=== PATIENT | male | born 1995 | race Caucasian/White ===

== ENCOUNTER → 2020-05-03 08:32 | Outpatient (BNVA) | payer OTHER, SELFPAY | PROVIDERS: Visit Provider Physician Assistant Medical | DX: S61.012A Laceration without foreign body of left thumb without damage to nail, initial encounter (principal); W26.9XXA Contact with unspecified sharp object(s), initial encounter | CPT/HCPCS: 12001; 99203 ==

== ENCOUNTER 2022-02-14 09:39 | Emergency (ER) | payer OTHER, SELFPAY ==
--- NOTE | ~2022-02-14 | XR_ITS ---
EXAMINATION: XR HAND, RIGHT CLINICAL INFORMATION: Crush injury, pain COMPARISON: None TECHNIQUE: Right hand is imaged in 4 views. FINDINGS: No visible acute healing fracture, dislocation, or destructive process. No visible radiopaque soft tissue from body. No periostitis. Bony mineralization appears normal. XR/XR hand RT min 3V IMPRESSION: No fracture, dislocation, or visible radiopaque soft tissue foreign body.
[2022-02-14 09:40] VITALS: BP 136/78; PULSE 65; RESP 15; TEMP 36.6; O2SAT 97; BMI 23.1
[2022-02-14] MEDS: Diphth,Pertus(ACell),Tet Adult 0.5 ML SYRINGE IM (10:43)
[2022-02-14] MEDS: Lidocaine HCl 1 % MPF 5 ML VIAL 6 ML SUBCUT (10:44)
--- NOTE | 2022-02-14 11:08 | ED.WOUNDLAC ---
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 he denies any fevers, paresthesias, weakness, thoughts of foreign bodies or any other symptoms complaints or concerns. Reports he is not up-to-date on tetanus. 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) Extremity Location: right: hand Place: work Patient tetanus UTD: No Context: accidental Associated symptoms: pain Treatments prior to arrival: bandage Related Data Previous Rx's Medication Instructions Recorded cephalexin 500 mg capsule 500 mg PO Q6H 10 days #40 caps 02/14/22 Allergies Allergy/AdvReac Type Severity Reaction Status Date / Time No Known Allergies Allergy Verified 02/14/22 10:17 Review of Systems Review of Systems: Constitutional : No Weight loss, No Fever, No Chills, No Night Sweats, No Fatigue, No Malaise ENT/Mouth : No Hearing loss, No Ear Pain, No Nasal Congestion, No Sinus Pain, No Hoarseness, No sore throat, No Rhinorrhea, No Swallowing Difficulty Eyes: No Eye Pain, No Swelling, No Redness, No Foreign Body, No Discharge, No Vision Changes Cardiovascular : No Chest Pain, No SOB, No Dyspnea on Exertion, No Orthopnea, No Edema, No Palpitations Respiratory : No Cough, No Sputum, No Wheezing, No Smoke Exposure, No Dyspnea Gastrointestinal : No Nausea, No Vomiting, No Diarrhea, No Constipation, No abdominal Pain, No Hematochezia, No Melena Genitourinary : no irregular bleeding, No Dysuria, No Urinary Frequency, No Hematuria, No Urinary Incontinence, No Urgency, No Flank Pain, No Urinary Flow Changes, No Hesitancy Musculoskeletal : + right hand and middle finger joint pain, No Myalgias, No Joint Swelling Skin : + two skin lacerations, No Skin Lesions, No rash Neuro : No Weakness, No Numbness, No Paresthesias, No Loss of Consciousness, No Dizziness, No Headache Psych : No Anxiety/Panic, No Depression, No SI/HI/AH/VH, No Social Issues, Heme/Lymph: No Bruising, No Bleeding,No Lymphadenopathy Endocrine : No Polyuria, No Polydipsia, No Temperature Intolerance Yes all other systems are reviewed and are negative FOR[facility] Past Medical History Attestation statement: The following information was validated with the patient. Source: old records reviewed, obtained from family and nursing notes reviewed Social History Social History Advance Directives: No Advance Directives Information Provided: Yes Physical Exam Vital Signs: Vital Signs: Last Vital Signs Temp 98 F 02/14/22 09:40 Pulse 65 02/14/22 09:40 Resp 15 02/14/22 09:40 BP 136/78 02/14/22 09:40 Pulse Ox 97 02/14/22 09:40 O2 Del Method 02/14/22 09:40 BMI result Body Mass Index 23.1 vital signs have been reviewed as normal and appeared to be correct. Blood pressure normal Heart rate normal. Respiration rate normal. Temperature normal. Oxygen saturation normal. Appearance: Alert. Oriented X3. No acute distress. Head: Normal external exam. Normocephalic. Atraumatic. Eyes: PERRLA. EOMI. Conjunctiva and sclera normal. Eyelids normal. ENT: Pharynx normal. Uvula midline. Moist mucous membranes. Neck: Normal inspection. Neck supple. FROM. CVS: Normal heart rate and rhythm. Respiratory: No respiratory distress. Painless inspiration. Skin: Skin warm and dry. Normal skin color. Normal skin turgor. To right hand at the dorsal aspect middle finger patient has 1 cm curve intermediate laceration no foreign bodies or bony tenderness or obvious ligamentous or tendon injury noted. Patient with 3 cm flap laceration to right hand dorsal aspect /ulnar with no bony tenderness or obvious ligamentous or tendon injury noted or foreign bodies noted. Patient has full range of motion of all finger joints. Otherwise no additional rashes/lesions noted. Extremities: all other extremities nontender with full range of motion. Neuro: Oriented X 3. No motor deficit. No sensory deficit. Reflexes normal. Normal steady gait. No focal neuro deficits noted. Vascular: + radial pulses/+ 2 distal pedal pulses/+2 dorsalis pedis b/l. Normal cap refill. No cyanosis noted to upper extremity nails and lower extremity toes nails. Course Course Course Narrative: Patient now status post laceration repair with 12 simple Interrupted stitches.. Tetanus updated. X-ray negative. Will DC home with symptomatic treatment antibiotics along with instructions to return in 10-14 days for suture removal and to follow up prior if signs of infection. Patient understands agrees the plan. MDM - Wound/Laceration Medical Records Attestation: I reviewed the patient's medical records. Imaging Data Right hand x-ray: Attestation: I personally reviewed and interpreted this imaging study as follows: Radiologist's impression: FINDINGS: No visible acute healing fracture, dislocation, or destructive process. No visible radiopaque soft tissue from body. No periostitis. Bony mineralization appears normal.? XR/XR hand RT min 3V IMPRESSION: No fracture, dislocation, or visible radiopaque soft tissue foreign body. Procedures Laceration Laceration 1: Site: hand (middle finger) Side (If applicable): right Size (cm): 1 Description: flap, irregular and clean Depth: simple, single layer Local Anesthetic: lidocaine 1% Amount of anesthesia used (mL): 3 Pre-repair: wound explored, irrigated extensively, deep structures intact and wound margins revised Skin layer closed with: nylon Size (cm): 4-0 Number of sutures: 5 Technique: simple, interrupted Laceration 2: Site: hand Side (If applicable): right Size (cm): 3 Description: flap and irregular Depth: simple, single layer Local Anesthetic: lidocaine 1% Amount of anesthesia used (mL): 3 Pre-repair: wound explored, irrigated extensively, deep structures intact and wound margins revised Skin layer closed with: nylon Size (cm): 4-0 Number of sutures: 7 Technique: simple, interrupted Discharge Plan Discharge Clinical Impression: Accident while engaged in work-related activity, Laceration of hand, right, Laceration of right middle finger Patient Disposition: Home, Self-Care Instructions: Laceration (ED), Return to Work Instructions (ED) Prescriptions: New cephalexin 500 mg capsule 500 mg PO Q6H 10 Days Qty: 40 0RF Referrals: Laura Jovel PA [Emergency Midlevel Provider] - 10 days (for suture removal ) Print Language: Guyanese
== END 2022-02-14 11:24 | disposition home or self-care (01) ==
PROVIDERS: Emergency Provider Emergency Medicine
DX: S61.212A Laceration without foreign body of right middle finger without damage to nail, initial encounter (principal); S60.412A Abrasion of right middle finger, initial encounter; S61.411A Laceration without foreign body of right hand, initial encounter; W26.9XXA Contact with unspecified sharp object(s), initial encounter; Y99.0 Civilian activity done for income or pay; Y92.9 Unspecified place or not applicable; Y99.9 Unspecified external cause status
CPT/HCPCS: 12002; 73130; 90471; 90715; 99283; 99284

== ENCOUNTER → 2022-12-07 15:53 | Outpatient (BNVA) | payer OTHER, SELFPAY | PROVIDERS: Visit Provider Physician Assistant | DX: S61.210A Laceration without foreign body of right index finger without damage to nail, initial encounter (principal); W31.9XXA Contact with unspecified machinery, initial encounter | CPT/HCPCS: 12001; 99204 ==

== ENCOUNTER → 2022-12-08 13:09 | Outpatient (BNVA) | payer OTHER, SELFPAY | PROVIDERS: Visit Provider Physician Assistant Medical | DX: S61.210A Laceration without foreign body of right index finger without damage to nail, initial encounter (principal); W31.9XXA Contact with unspecified machinery, initial encounter | CPT/HCPCS: 99213 ==

== ENCOUNTER → 2022-12-15 14:15 | Outpatient (BNVA) | payer OTHER, SELFPAY | PROVIDERS: Visit Provider Physician Assistant | DX: Z48.02 Encounter for removal of sutures (principal); S61.210D Laceration without foreign body of right index finger without damage to nail, subsequent encounter; W31.9XXD Contact with unspecified machinery, subsequent encounter | CPT/HCPCS: 99212; 99213 ==